=== PATIENT | male | born 1960 | race Caucasian/White ===

== ENCOUNTER 2016-12-22 11:58 | Emergency (ER) | payer SELFPAY ==
[2016-12-22 12:10] VITALS: BP 152/70
--- NOTE | 2016-12-22 12:31 | UC ---
Lower Extremity/Ankle HPI - HPI Summary HPI Summary: This is an otherwise healthy 56 yo gentleman who presents with c/o R groin pain. Pain started suddenly yesterday when he stepped on to a moving treadmill. The treadmill was moving faster than he anticipated and his R leg was jerked backwards resulting in immediate pain. He has been taking ibuprofen and Robaxin and applying every 8h without relief. He was unable to sleep because of the pain. No associated weakness, numbness or tingling. - History of Current Complaint Chief Complaint: UCLowerExtremity Stated Complaint: RIGHT GROIN COMPLAINT - Allergies/Home Medications Allergies/Adverse Reactions: Allergies Allergy/AdvReac Type Severity Reaction Status Date / Time No Known Allergies Allergy Verified 12/22/16 12:04 Home Medications: Home Medications Ibuprofen [Advil] 800 mg PO Q8H PRN 12/22/16 [History Confirmed 12/22/16] Methocarbamol TAB* [Robaxin 500 MG TAB*] 500 mg PO TID PRN 12/22/16 [History Confirmed 12/22/16] PMH/Surg Hx/FS Hx/Imm Hx Previously Healthy: Yes - Surgical History Surgical History: None - Family History Known Family History: Positive: None - Social History Alcohol Use: None Substance Use Type: None Smoking Status (MU): Former Smoker When Did the Patient Quit Smoking/Using Tobacco: 2016 Review of Systems Constitutional: Negative Skin: Negative Eyes: Negative ENT: Negative Respiratory: Negative Cardiovascular: Negative Gastrointestinal: Negative Genitourinary: Negative Motor: Negative Neurovascular: Negative Musculoskeletal: Arthralgia, Myalgia Neurological: Negative Psychological: Negative All Other Systems Reviewed And Are Negative: Yes Physical Exam Triage Information Reviewed: Yes Appearance: Pain Distress - mild, walks slowly with an antalgic gait Vital Signs: Initial Vital Signs Temp 98.9 F 12/22/16 12:06 Pulse 90 12/22/16 12:06 Resp 18 12/22/16 12:06 BP 152/70 12/22/16 12:06 Pulse Ox 98 12/22/16 12:06 Vital Signs Reviewed: Yes ENT Exam: Normal ENT: Positive: Hearing grossly normal Neck: Positive: Supple, Nontender Respiratory Exam: Normal Respiratory: Positive: Lungs clear. Negative: Crackles, Rhonchi, Wheezing Cardiovascular Exam: Normal Cardiovascular: Positive: RRR, No Murmur Abdominal Exam: Normal Abdomen Description: Positive: Nontender, Soft Musculoskeletal: Positive: ROM Intact, No Edema, Other: - TTP in R inguinal region Neurological: Positive: Alert Psychological Exam: Normal Skin Exam: Normal Skin: Negative: rashes Lower Extremity Course/Dx - Course Course Of Treatment: This is an otherwise healthy 56 yo gentleman who presents with an acute injury to his R groin yesterday on the treadmill. He has not received relief from appropriately dosed NSAIDs, muscle relaxants and ice. Rx' d hydrocodone for additional relief and patient instructed to continue additional medications and regular ice and limit activity. - Differential Dx/Diagnosis Differential Diagnosis/HQI/PQRI: Fracture (Closed), Sprain, Strain Provider Diagnoses: 1. R groin strain Discharge - Discharge Plan Condition: Stable Disposition: HOME Prescriptions: Hydrocodone-Acetaminophen [Lorcet 5-325 mg] 1 tab PO Q4H #30 tab MDD 6 tabs Patient Education Materials: Groin Strain (ED) Additional Instructions: Activity: As tolerated Instructions: 1. Continue to use Motrin and muscle relaxant as needed 2. Apply ice to the painful area for 10-15 3-4 times daily 3. Use hydrocodone for moderate to severe pain not relieved by motrin
== END 2016-12-22 12:30 | disposition home or self-care (01) ==
LOC: UCCORT 11:58
DX: S39.011A Strain of muscle, fascia and tendon of abdomen, initial encounter (principal); X50.0XXA Overexertion from strenuous movement or load, initial encounter; Y93.B1 Activity, exercise machines primarily for muscle strengthening
CPT/HCPCS: 99202; G0463